=== PATIENT | female | born 1990 | race Caucasian/White ===

== ENCOUNTER 2017-09-03 17:11 | Emergency (ER) | payer MEDICAID ==
[2017-09-03 17:48] VITALS: BP 116/59
--- NOTE | 2017-09-03 19:20 | EDM.PDOC ---
ED HPI GENERAL MEDICAL PROBLEM - General Chief Complaint: Gastrointestinal Problem Stated Complaint: blood in stool Time Seen by Provider: 09/03/17 18:00 Source of Information: Reports: Patient, Family, RN History Limitations: Reports: No Limitations - History of Present Illness INITIAL COMMENTS - FREE TEXT/NARRATIVE: 27 yr female presents with complaint of blood to stool today. States she has been on Penicillin for last several days after having some dental work done. States she has been on coumadin since she was 9yr for her heart condition since . States she has been changing her diet and trying to work out and get in shape. States some lower abdomen discomfort today while working out, had a BM with some blood to stool and now has no more pain and no more blood. States she thinks there might be an interaction with her coumadin. 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 Denies: Abdominal Pain, Nausea, Vomiting : Reports: No Symptoms Musculoskeletal: Reports: No Symptoms Skin: Reports: No Symptoms ED EXAM, GI/ABD - Physical Exam Exam: See Below Exam Limited By: No Limitations General Appearance: Alert, No Apparent Distress Ears: Hearing Grossly Normal Nose: Normal Inspection Throat/Mouth: Normal Inspection Head: Atraumatic, Normocephalic Neck: Normal Inspection, Non-Tender Respiratory/Chest: No Respiratory Distress, Lungs Clear Cardiovascular: Regular Rate, Rhythm GI/Abdominal Exam: Normal Bowel Sounds, Soft, Non-Tender, No Distention. No: Guarding, Rebound Extremities: Other (Ambulatory with no dizziness) Neurological: Alert, Oriented, Normal Cognition Psychiatric: Normal Affect Skin Exam: Warm, Dry, Normal Color Lymphatic: No Adenopathy Course - Vital Signs Last Recorded V/S: Last Vital Signs Temp 71.1 F L 09/03/17 17:46 Pulse 98 09/03/17 17:46 Resp 16 09/03/17 17:46 BP 116/59 L 09/03/17 17:46 Pulse Ox 100 09/03/17 17:46 - Orders/Labs/Meds Labs: Laboratory Tests 09/03/17 09/03/17 09/03/17 Range/Units 18:02 18:02 18:02 WBC 8.7 D (4.0-11.0) K/uL RBC 3.75 L (3.80-5.80) M/uL Hgb 11.9 (11.5-16.5) g/dL Hct 34.5 L (37.0-47.0) % MCV 92 (76-96) fL MCH 31.7 (27.0-32.0) pg MCHC 34.5 (31.0-35.0) g/dL RDW 12.6 (11.0-16.0) % Plt Count 198 (150-500) K/uL MPV 10.4 H (6.0-10.0) fL Neut % (Auto) 59.7 (45.0-70.0) % Lymph % (Auto) 16.3 L (20.0-40.0) % [place] % (Auto) 7.6 (3.0-10.0) % Eos % (Auto) 15.6 H (1.0-5.0) % Baso % (Auto) 0.8 H (0.0-0.5) % Neut # (Auto) 5.19 (2.00-7.50) K/uL Lymph # (Auto) 1.42 L (1.50-4.00) K/uL [place] # (Auto) 0.66 (0.20-0.80) K/uL Eos # (Auto) 1.36 H (0.04-0.40) K/uL Baso # (Auto) 0.07 (0.02-0.10) K/uL PT 29.2 H D (9.0-11.5) sec INR 3.1 D (1.0-3.5) Sodium 138 (136-145) mmol/L Potassium 4.1 (3.5-5.1) mmol/L Chloride 103 (98-107) mmol/L Carbon Dioxide 27.7 (21.0-32.0) mmol/L Anion Gap 11.4 (5.0-15.0) mmol/L BUN 18 (8-26) mg/dL Creatinine 0.71 (0.55-1.02) mg/dL Est Cr Clr Drug Dosing 6.92 mL/min Estimated GFR (MDRD) > 60 (>60) MLS/MIN BUN/Creatinine Ratio 25.4 H (6-25) Glucose 118 H D (74-100) mg/dL Calcium 8.9 (8.5-10.1) mg/dL Total Bilirubin 0.4 (0.0-1.0) mg/dL AST 30 (15-37) U/L ALT 32 (12-78) U/L Alkaline Phosphatase 79 (46-116) U/L Total Protein 7.4 (6.4-8.2) g/dL Albumin 4.0 (3.4-5.0) g/dL Globulin 3.4 (2.2-4.2) g/dL Albumin/Globulin Ratio 1.2 (0.8-2.0) - Re-Assessments/Exams Free Text/Narrative Re-Assessment/Exam: 09/03/17 19:20 LE Reviewed lab results with pt and family member. PT/INR checked and 3.1. Hgb 11.9. CMP normal and CBC normal for pt. Recommend continue with same dose of Coumadin. States her normal is 2-3.5 for INR. She does have this checked monthly. Recommend stopping her Pencillin and monitor the stools. Diarrhea should clear and no blood to stool should be noted. Recommend checking on iron to daily vitamin and start iron tablet. Recommend to monitor stools for now. If increase in blood to stool return to ER. Reassured pt that lab values are normal and should monitor results of PT/INR. Recommend no ASA and no pepto- bismul. Departure - Departure Time of Disposition: 18:50 Disposition: Home, Self-Care 01 Condition: Good Clinical Impression: Gastritis - Discharge Information Referrals: PCP,None [Primary Care Provider] - Forms: ED Department Discharge Care Plan Goals: Stop penicillin. Eat yogurt daily. Continue with same dose of Coumadin. If bleeding continues or worsens RTC as needed. Eat foods high in iron - Problem List & Annotations (1) Gastritis SNOMED Code(s): 8551292 Code(s): K29.70 - GASTRITIS, UNSPECIFIED, WITHOUT BLEEDING Status: Acute Current Visit: Yes - Problem List Review Problem List Initiated/Reviewed/Updated: Yes - Assessment/Plan Plan: LEl Discharge to home and self care. Recommend to stop Penicillin at this time. States no pain to teeth and fillings intact. Recommend probiotic or yogurt to assist with stool consistency. Reviewed lab results with pt. Hgb level normal for pt, no elevated WBC, and PT/INR normal for pt condition. 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 She has been on Coumadin since age 9. Recommend starting iron tablet or vitamin with iron to prevent anemia. States history of anemia in past. Pt should follow-up with PCP and monitor stools. If stool continues to be loose or appearance of blood to stool, pt may need further work-up. Recommend not to have ASA and no pepto-bismul for pt. May use Tums or Mylanta if needed for any heartburn or gastritis.
== END 2017-09-03 18:50 | disposition home or self-care (01) ==
LOC: LB.ED 17:11
DX: K29.70 Gastritis, unspecified, without bleeding (principal); Z79.01 Long term (current) use of anticoagulants; Z79.899 Other long term (current) drug therapy
CPT/HCPCS: 36415; 80053; 85025; 85610; 99283; 99284

== ENCOUNTER 2020-06-26 11:44 | Emergency (ER) | payer OTHER ==
[2020-06-26 13:23] VITALS: BP 93/62; PULSE 92
[2020-06-26] MEDS ORDERED: Sodium Chloride 0.9% 1,000 ML IV SCH (14:00)
--- NOTE | 2020-06-26 14:02 | EDM.PDOC ---
ED HPI GENERAL MEDICAL PROBLEM - General Chief Complaint: General Stated Complaint: COVID SYMPTOMS Time Seen by Provider: 06/26/20 13:00 Source of Information: Reports: Patient History Limitations: Reports: No Limitations - History of Present Illness INITIAL COMMENTS - FREE TEXT/NARRATIVE: Patient is a 29 y/o female who presents for fatigue and loss of appetite x 1 year. She also complains of chronic hemorrhoids and would like to see a specialist regarding that. Patient admits to eating "junk" foods and having chronic constipation. Patient is on depo and denies any chance of . She denies LUJAN, fever, SOB, cough, chest pain, abdominal pain, N/V/D, or dysuria. 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: unable to carry full term due to heart - Past Surgical History Other Cardiovascular Surgeries/Procedures: several open heart surgeries Social & Family History - Caffeine Use Caffeine Use: Reports: None - Recreational Drug Use Recreational Drug Use: No ED ROS GENERAL - Review of Systems Review Of Systems: See Below Constitutional: Reports: Fatigue, Decreased Appetite, Weight Loss HEENT: Reports: No Symptoms Respiratory: Reports: No Symptoms Cardiovascular: Reports: No Symptoms GI/Abdominal: Reports: Constipation, Other (hemorrhoids) : Reports: No Symptoms Musculoskeletal: Reports: No Symptoms Skin: Reports: No Symptoms Neurological: Reports: No Symptoms Psychiatric: Reports: No Symptoms ED EXAM, GENERAL - Physical Exam Exam: See Below Exam Limited By: No Limitations General Appearance: Alert, No Apparent Distress Head: Atraumatic, Normocephalic Neck: Normal Inspection, Supple, Non-Tender, Full Range of Motion Respiratory/Chest: No Respiratory Distress, Lungs Clear, Normal Breath Sounds, No Accessory Muscle Use, Chest Non-Tender Cardiovascular: Normal Peripheral Pulses, Regular Rate, Rhythm, No Edema, Other (systolic click) GI/Abdominal: Normal Bowel Sounds, Soft, Non-Tender, No Distention Extremities: Normal Inspection, Normal Range of Motion, No Pedal Edema Neurological: Alert, Oriented, CN II-XII Intact, Normal Cognition, Normal Gait, Normal Reflexes, No Motor/Sensory Deficits Psychiatric: Normal Affect, Normal Mood Skin Exam: Warm, Dry, Intact, Normal Color, No Rash Lymphatic: No Adenopathy Course - Vital Signs Text/Narrative:: Labs were unremarkable. 1 L NS bolus. Last Recorded V/S: Last Vital Signs Temp 36.1 C 06/26/20 13:22 Pulse 92 06/26/20 13:22 Resp 16 06/26/20 13:22 BP 93/62 06/26/20 13:22 Pulse Ox 98 06/26/20 13:22 - Orders/Labs/Meds Orders: Active Orders 24 hr Category Date Time Status UA W/EMILY RFLX IF INDICATED [URIN] Stat Lab 06/26/20 12:37 Ordered Labs: Laboratory Tests 06/26/20 06/26/20 06/26/20 Range/Units 11:59 12:50 12:50 WBC 7.3 (4.0-11.0) K/uL RBC 4.14 (3.80-5.80) M/uL Hgb 13.4 (11.5-16.5) g/dL Hct 38.7 (37.0-47.0) % MCV 94 (76-96) fL MCH 32.4 H (27.0-32.0) pg MCHC 34.6 (31.0-35.0) g/dL RDW 12.8 (11.0-16.0) % Plt Count 194 (150-500) K/uL MPV 10.8 H (6.0-10.0) fL Neut % (Auto) 67.6 (45.0-70.0) % Lymph % (Auto) 16.9 L (20.0-40.0) % [place] % (Auto) 10.1 H (3.0-10.0) % Eos % (Auto) 4.7 (1.0-5.0) % Baso % (Auto) 0.7 H (0.0-0.5) % Neut # (Auto) 4.91 (2.00-7.50) K/uL Lymph # (Auto) 1.23 L (1.50-4.00) K/uL [place] # (Auto) 0.73 (0.20-0.80) K/uL Eos # (Auto) 0.34 (0.04-0.40) K/uL Baso # (Auto) 0.05 (0.02-0.10) K/uL PT (9.0-11.5) sec INR (1.0-3.5) Sodium 142 (136-145) mmol/L Potassium 3.6 (3.5-5.1) mmol/L Chloride 104 (98-107) mmol/L Carbon Dioxide 28.4 (21.0-32.0) mmol/L Anion Gap 13.2 (5.0-15.0) mmol/L BUN 7 L D (8-26) mg/dL Creatinine 0.72 (0.55-1.02) mg/dL Est Cr Clr Drug Dosing TNP Estimated GFR (MDRD) > 60 (>60) MLS/MIN BUN/Creatinine Ratio 9.7 (6-25) Glucose 113 H (74-100) mg/dL Calcium 8.9 (8.5-10.1) mg/dL Total Bilirubin 0.8 D (0.0-1.0) mg/dL AST 21 (15-37) U/L ALT 28 (12-78) U/L Alkaline Phosphatase 70 (46-116) U/L Total Protein 7.4 (6.4-8.2) g/dL Albumin 4.1 (3.4-5.0) g/dL Globulin 3.3 (2.2-4.2) g/dL Albumin/Globulin Ratio 1.2 (0.8-2.0) Digoxin (0.5-2.00) ng/mL Monoscreen (NEGATIVE) SARS CoV-2 RNA Rapid DAYDAY Negative 06/26/20 06/26/20 06/26/20 Range/Units 12:50 12:59 13:20 WBC (4.0-11.0) K/uL RBC (3.80-5.80) M/uL Hgb (11.5-16.5) g/dL Hct (37.0-47.0) % MCV (76-96) fL MCH (27.0-32.0) pg MCHC (31.0-35.0) g/dL RDW (11.0-16.0) % Plt Count (150-500) K/uL MPV (6.0-10.0) fL Neut % (Auto) (45.0-70.0) % Lymph % (Auto) (20.0-40.0) % [place] % (Auto) (3.0-10.0) % Eos % (Auto) (1.0-5.0) % Baso % (Auto) (0.0-0.5) % Neut # (Auto) (2.00-7.50) K/uL Lymph # (Auto) (1.50-4.00) K/uL [place] # (Auto) (0.20-0.80) K/uL Eos # (Auto) (0.04-0.40) K/uL Baso # (Auto) (0.02-0.10) K/uL PT 31.9 H (9.0-11.5) sec INR 3.2 D (1.0-3.5) Sodium (136-145) mmol/L Potassium (3.5-5.1) mmol/L Chloride (98-107) mmol/L Carbon Dioxide (21.0-32.0) mmol/L Anion Gap (5.0-15.0) mmol/L BUN (8-26) mg/dL Creatinine (0.55-1.02) mg/dL Est Cr Clr Drug Dosing Estimated GFR (MDRD) (>60) MLS/MIN BUN/Creatinine Ratio (6-25) Glucose (74-100) mg/dL Calcium (8.5-10.1) mg/dL Total Bilirubin (0.0-1.0) mg/dL AST (15-37) U/L ALT (12-78) U/L Alkaline Phosphatase (46-116) U/L Total Protein (6.4-8.2) g/dL Albumin (3.4-5.0) g/dL Globulin (2.2-4.2) g/dL Albumin/Globulin Ratio (0.8-2.0) Digoxin 0.6 (0.5-2.00) ng/mL Monoscreen Negative (NEGATIVE) SARS CoV-2 RNA Rapid DAYDAY Departure - Departure Time of Disposition: 14:30 Disposition: Home, Self-Care 01 Condition: Good Clinical Impression: Fatigue Qualifiers: Fatigue type: chronic, unspecified Qualified Code(s): R53.82 - Chronic fatigue, unspecified Hemorrhoids Qualifiers: Hemorrhoid type: unspecified Qualified Code(s): K64.9 - Unspecified hemorrhoids Constipation Qualifiers: Constipation type: unspecified constipation type Qualified Code(s): K59.00 - Co nstipation, unspecified - Discharge Information *PRESCRIPTION DRUG MONITORING PROGRAM REVIEWED*: Not Applicable *COPY OF PRESCRIPTION DRUG MONITORING REPORT IN PATIENT ADAN: Not Applicable Instructions: Fatigue, Chronic Constipation, Hemorrhoids, [id number] Referrals: PCP,None [Primary Care Provider] - Sepsis Event Note (ED) - Evaluation Sepsis Screening Result: No Definite Risk - Focused Exam Vital Signs: Vital Signs Temp Pulse Resp BP Pulse Ox 06/26/20 13:22 36.1 C 92 16 93/62 98 - My Orders Last 24 Hours: My Active Orders 06/26/20 12:37 UA W/EMILY RFLX IF INDICATED [URIN] Stat - Assessment/Plan Last 24 Hours: My Active Orders 06/26/20 12:37 UA W/EMILY RFLX IF INDICATED [URIN] Stat Plan: Follow up apt with Dr. Ricketts next Wednesday for further evaluation. Colace BID for stool softener and high-fiber diet. Suggested melatonin and valerian tea to help with restlessness when trying to sleep. Follow up with colo-rectal surgeon that comes to [place] once a month regarding chronic hemorrhoids.
== END 2020-06-26 15:00 | disposition home or self-care (01) ==
LOC: LB.ED 11:44
DX: K64.9 Unspecified hemorrhoids (principal); R53.82 Chronic fatigue, unspecified; K59.00 Constipation, unspecified; Z79.01 Long term (current) use of anticoagulants; Z79.899 Other long term (current) drug therapy; Z20.828 Contact with and (suspected) exposure to other viral communicable diseases
CPT/HCPCS: 36415; 80053; 80162; 81003; 85025; 85610; 86308; 99284; J7030; U0002